=== PATIENT | female | born 1950 | race Two or more races ===

== ENCOUNTER 2017-06-15 20:37 | Emergency (ER) | payer MEDICAID ==
[~2017-06-15] VITALS: Ht 149.9 cm; Wt 54.4 kg
[~2017-06-15 20:37] MED LIST: ALPR0.5T7 PO; CIME-52 PO; HYDR-3682 PO; LISI2.5T47 PO
[2017-06-15 21:15] LABS: Basophils # (auto) 0.1 uL; Basophils % (auto) 1.1 % (0.0-2.0); Eosinophils # (auto) 0.2 uL; Eosinophils % (auto) 2.5 % (0.0-7.0); Hematocrit 37.3 % (36.0-46.0); Hemoglobin 12.8 g/dL (12.2-16.2); Lymphocytes # (auto) 1.1 uL; Lymphocytes % (auto) 16.3 % (10.0-50.0); Mean Corpuscular Hemoglobin 29.4 pg (28.0-32.0); Mean Corpuscular Hgb Conc. 34.4 g/dL (32.0-36.0); Mean Corpuscular Volume 85.5 fL (80.0-100.0); Mean Platelet Volume 6.6 fL (6.9-10.8); Monocytes # (auto) 0.6 uL; Monocytes % (auto) 8.3 % (0.0-12.0); Neutrophils # (auto) 4.8 uL; Neutrophils % (auto) 71.8 % (37.0-80.0); Nucleated Red Blood Cells % 0.1 %; Platelet Count (auto) 282 10^3/uL (140-450); Red Cell Distribution Width 13.5 % (11.8-14.3); White Blood Cell 6.7 10^3/uL (4.4-10.8)
[2017-06-15 21:18] LABS: INR 0.95 (0.9-1.15); Partial Thromboplastin Time 27.8 sec (22.64-33.71); Prothrombin Time 10.3 sec (9.37-12.3)
[2017-06-15 21:22] LABS: Albumin 3.4 g/dL (3.4-5.0); BUN/Creatinine Ratio 6.1; Calcium 8.3 mg/dL (8.5-10.1); Potassium 3.5 mmol/L (3.5-5.1)
[2017-06-15 21:25] LABS: Bilirubin, Total 0.3 mg/dL (0.2-1.0)
[2017-06-16 00:08] VITALS: BP 124/86
== END 2017-06-16 01:24 | disposition home or self-care (01) ==
LOC: EDBD 20:37 → ER 20:46
DX: J06.9 Acute upper respiratory infection, unspecified (principal); R04.2 Hemoptysis; K21.9 Gastro-esophageal reflux disease without esophagitis; I10 Essential (primary) hypertension; F17.210 Nicotine dependence, cigarettes, uncomplicated; Z90.49 Acquired absence of other specified parts of digestive tract; Z90.710 Acquired absence of both cervix and uterus; Z90.89 Acquired absence of other organs
CPT/HCPCS: 36415; 70450; 71010; 80053; 85025; 85610; 85730; 93005; 94761; 99285; J7030